=== PATIENT | male | born 1960 | race Two or more races ===

== ENCOUNTER 2020-10-04 12:46 | Outpatient (CLI) | payer OTHER | END 2020-10-04 15:00 | disposition home or self-care (01) | LOC: LAB 12:46 | PROVIDERS: ATTEND Urology | DX: R97.20 Elevated prostate specific antigen [PSA] (principal) ==

== ENCOUNTER 2020-11-05 07:34 | Outpatient (CLI) | payer OTHER | END 2020-11-05 07:47 | disposition home or self-care (01) | LOC: SONOGRAMA 07:34 | PROVIDERS: ATTEND Urology | DX: C61 Malignant neoplasm of prostate (principal); R97.20 Elevated prostate specific antigen [PSA] ==

== ENCOUNTER → 2020-11-24 | Outpatient (CLI) | payer OTHER | END | disposition home or self-care (01) | LOC: TOM 07:45 | PROVIDERS: ATTEND Urology | DX: R10.84 Generalized abdominal pain (principal); C61 Malignant neoplasm of prostate ==

== ENCOUNTER 2020-12-02 07:37 | Outpatient (CLI) | payer OTHER | END 2020-12-02 08:02 | disposition home or self-care (01) | LOC: NUCLEAR 07:37 | PROVIDERS: ATTEND Urology | DX: C61 Malignant neoplasm of prostate (principal) | CPT/HCPCS: 78814; A9552 ==